=== PATIENT | female | born 1940 | race Caucasian/White ===

== ENCOUNTER 2023-09-14 22:46 | Inpatient (IN) | payer OTHER, MEDICARE ==
[~2023-09-14] VITALS: Ht 149.9 cm; Wt 71.7 kg
[~2023-09-14 22:46] MED LIST: BP MED; CEPH-569 PO; HORMONE; LOSA25TA27 PO; ZOLP12.52 PO
[2023-09-14] MEDS: IV NS 0.9% 1,000 ML BAG IV ONE (23:13)
[2023-09-14 23:22] LABS: BASOPHILS % (AUTO) 0.4 % (0.0-2.0); EOSINOPHILS % (AUTO) 0.4 % (0.0-6.0); HEMATOCRIT 42 % (33-45); HEMOGLOBIN 14.4 g/dL (11.5-14.8); LYMPHOCYTES # (AUTO) 1.3 K/uL (0.8-4.8); LYMPHOCYTES % (AUTO) 12.6 % (20.0-44.0); MEAN CORPUSCULAR HEMOGLOBIN 30 PG (26.0-33.0); MEAN CORPUSCULAR HGB CONC 34 g/dl (31.0-36.0); MEAN CORPUSCULAR VOLUME 88 fL (82-100); MONOCYTES # (AUTO) 0.6 K/uL (0.1-1.30); MONOCYTES % (AUTO) 5.7 % (2.0-12.0); NEUTROPHILS # (AUTO) 8.5 K/uL (1.8-8.9); NEUTROPHILS % (AUTO) 80.9 % (43.0-81.0); PLATELET COUNT (AUTO) 191 K/uL (150-450); RED BLOOD CELL COUNT(AUTO) 4.83 MIL/uL (4.0-5.2); RED CELL DISTRIBUTION WIDTH 15.7 % (11.5-15.0); WHITE BLOOD COUNT (AUTO) 10.5 K/uL (4.3-11.0)
[2023-09-15 00:26] LABS: APPEARANCE,URINE CLEAR (CLEAR); BILIRUBIN,URINE NEGATIVE (NEGATIVE); BLOOD, URINE 3+ Ery/uL (NEGATIVE); COLOR,URINE YELLOW (YELLOW); KETONES,URINE NEGATIVE (NEGATIVE); LEUKOCYTE ESTERASE ,URINE TRACE (NEGATIVE); NITRITE, URINE NEGATIVE (NEGATIVE); PROTEIN,URINE NEGATIVE (NEGATIVE); UGLUCOSE NEGATIVE (NEGATIVE); UROBILINOGEN,URINE 0.2 EU/dL (0.2)
[2023-09-15 00:35] LABS: ALANINE AMINOTRANSFERASE 34 U/L (12-78); ALBUMIN 3.6 g/dL (3.4-5.0); ALCOHOL, BLOOD < 3 mg/dL (0-10); ALKALINE PHOSPHATASE 71 U/L (46-116); ASPARTATE AMINOTRANSFERASE 47 U/L (15-37); BILIRUBIN,DIRECT 0.1 mg/dL (0.0-0.2); BILIRUBIN,TOTAL 0.6 mg/dL (0.2-1.0); CALCIUM, SERUM 9.5 mg/dL (8.5-10.1); CARBON DIOXIDE 25 mmol/L (21-32); CHLORIDE 101 mmol/L (98-107); GLUCOSE 120 mg/dL (74-106); POTASSIUM 3.5 mmol/L (3.5-5.1); SODIUM SERUM 138 mmol/L (136-145); TOTAL PROTEIN, SERUM 7.4 g/dL (6.4-8.2); UREA NITROGEN, BLOOD 21 mg/dL (7-18)
[2023-09-15 00:35] LABS: AMPHETAMINE, URINE NEGATIVE (NEGATIVE); BARBITURATE, URINE NEGATIVE (NEGATIVE); BENZODIAZEPINE, URINE NEGATIVE (NEGATIVE); CANNABINOID, URINE NEGATIVE (NEGATIVE); COCCAINE, URINE NEGATIVE (NEGATIVE); OPIATE, URINE NEGATIVE (NEGATIVE); PHENCYCLIDINE SCREEN,URINE NEGATIVE (NEGATIVE)
[2023-09-15 00:37] LABS: ADD URINE CULTURE NO; BACTERIA,URINE None seen /HPF (None Seen)
[2023-09-15 00:38] LABS: SQUAMOUS EPITHELIAL CELL,UR 0-2 /HPF (None Seen)
[2023-09-15 00:40] LABS: ACETAMINOPHEN 0 ug/ml (10-30); SALICYLATE 1.3 mg/dL (2.8-20.0)
[2023-09-15] MEDS ORDERED: IBUPROFEN 600 MG TABLET ONE (03:26)
[2023-09-15] MEDS: IBUPROFEN 600 MG TABLET PO ONE (03:35)
[2023-09-15] MEDS ORDERED: ZOLP10TA2 PO (10:16)
[2023-09-15] MEDS ORDERED: ROSU10TA29 PO (10:16)
[2023-09-15] MEDS ORDERED: GABA800T11 PO (10:16)
[2023-09-15 12:30] VITALS: BP 161/76; TEMP 97.7; O2SAT 98
[2023-09-15] MEDS ORDERED: MAG HYDROX/AL HYDROX/SIMETH 30 ML UDC PO PRN (12:30)
[2023-09-15] MEDS ORDERED: LORAZEPAM 0.5 MG TABLET PO PRN (12:30)
[2023-09-15] MEDS ORDERED: MAGNESIUM HYDROXIDE 30 ML UDC PO PRN (12:30)
[2023-09-15] MEDS: BLOOD SUGAR DIAGNOSTIC 1 EACH STRIP IN ONE (13:54)
[2023-09-15 16:00] VITALS: BP 163/71; TEMP 98; O2SAT 98
[2023-09-15] MEDS: ACETAMINOPHEN 325 MG TABLET PO PRN (16:31)
[2023-09-15] MEDS: ATORVASTATIN 40 MG TABLET PO SCH (18:10)
[2023-09-15 20:00] VITALS: BP 135/79; TEMP 97.8; O2SAT 95
[2023-09-15 21:02] VITALS: BP 178/94; TEMP 97.8; O2SAT 95
[2023-09-16 08:00] VITALS: BP 192/94; TEMP 98; O2SAT 96
[2023-09-16] MEDS: LOSARTAN POTASSIUM 25 MG TABLET PO SCH (08:40)
[2023-09-16 09:10] LABS: ALANINE AMINOTRANSFERASE 26 U/L (12-78); ALBUMIN 3.2 g/dL (3.4-5.0); ALKALINE PHOSPHATASE 66 U/L (46-116); ASPARTATE AMINOTRANSFERASE 30 U/L (15-37); BILIRUBIN,TOTAL 0.7 mg/dL (0.2-1.0); CALCIUM, SERUM 9.2 mg/dL (8.5-10.1); CARBON DIOXIDE 25 mmol/L (21-32); CHLORIDE 104 mmol/L (98-107); CREATININE 0.7 mg/dL (0.6-1.3); GLUCOSE 116 mg/dL (74-106); POTASSIUM 3.3 mmol/L (3.5-5.1); SODIUM SERUM 140 mmol/L (136-145); TOTAL PROTEIN, SERUM 6.9 g/dL (6.4-8.2); UREA NITROGEN, BLOOD 12 mg/dL (7-18)
[2023-09-16 09:17] LABS: CHOLESTEROL 200 mg/dL (<200); HDL CHOLESTEROL 88 mg/dL (40-60); LDL 86 mg/dL (0-99); TRIGLYCERIDES 87 mg/dL (30-150)
[2023-09-16 10:04] LABS: CREATININE 0.7 mg/dL (0.6-1.3)
[2023-09-16] MEDS: AMLODIPINE BESYLATE 10 MG TABLET PO SCH (10:52)
[2023-09-16] MEDS: ESCITALOPRAM OXALATE (10 MG) 10 MG TABLET PO SCH (10:52)
[2023-09-16] MEDS: POTASSIUM CHLORIDE 20 MEQ TAB.PRT.SR PO ONE (12:01)
[2023-09-16] MEDS: METHOCARBAMOL (750MG) 750 MG TABLET PO ONE (12:01)
[2023-09-16 16:00] VITALS: BP 158/80; TEMP 97.5; O2SAT 98
[2023-09-16] MEDS: ONDANSETRON 4 MG TAB.RAPDIS PO PRN (16:50)
[2023-09-16 20:20] VITALS: BP 146/85; TEMP 98.8; O2SAT 98
[2023-09-16] MEDS: GABAPENTIN 400 MG CAPSULE PO SCH (20:33)
[2023-09-16] MEDS: diphenhydrAMINE HCL 50 MG CAPSULE PO PRN (20:48)
[2023-09-17 08:00] VITALS: BP 156/85; TEMP 97.9; O2SAT 96
[2023-09-17] MEDS: IBUPROFEN 600 MG TABLET PO PRN (12:53)
[2023-09-17 16:00] VITALS: BP 130/75; TEMP 97.8; O2SAT 98
[2023-09-17] MEDS: LOSARTAN POTASSIUM 25 MG TABLET PO SCH (16:56)
[2023-09-17 20:22] VITALS: BP 98/70; TEMP 97.5; O2SAT 98
[2023-09-18 08:00] VITALS: BP 132/65; TEMP 97.9; O2SAT 96
[2023-09-18 16:00] VITALS: BP 120/67; TEMP 97.7; O2SAT 94
[2023-09-18 21:07] VITALS: BP 129/69; TEMP 98.4; O2SAT 96
[2023-09-19 08:00] VITALS: BP 133/77; TEMP 98.1; O2SAT 97
[2023-09-19 16:00] VITALS: BP 120/72; TEMP 97.9; O2SAT 96
[2023-09-19 20:00] VITALS: BP 164/84; TEMP 98.1; O2SAT 97
[2023-09-20 08:00] VITALS: BP 145/79; TEMP 97.6; O2SAT 100
[2023-09-20 16:00] VITALS: BP 139/73; TEMP 98.1; O2SAT 96
[2023-09-20] MEDS: METHOCARBAMOL (500MG) 500 MG TABLET PO PRN (17:18)
[2023-09-20 20:00] VITALS: BP 130/75; TEMP 98.4; O2SAT 95
[2023-09-21 08:00] VITALS: BP 151/75; TEMP 97.7; O2SAT 94
[2023-09-21 08:31] VITALS: BP 151/75
== END 2023-09-21 12:20 | disposition home or self-care (01) | DRG 885 ==
LOC: ER 23:02 → GPS 09-15 12:08
PROVIDERS: ADMIT Psychiatry & Neurology Psychiatry; ATTEND Student in an Organized Health Care Education/Training Program
DX: F33.2 Major depressive disorder, recurrent severe without psychotic features (principal); T42.6X2A Poisoning by other antiepileptic and sedative-hypnotic drugs, intentional self-harm, initial encounter; R45.851 Suicidal ideations; F43.21 Adjustment disorder with depressed mood; I10 Essential (primary) hypertension; Z88.8 Allergy status to other drugs, medicaments and biological substances; Z79.899 Other long term (current) drug therapy; Y92.009 Unspecified place in unspecified non-institutional (private) residence as the place of occurrence of the external cause; Z85.038 Personal history of other malignant neoplasm of large intestine; Z90.49 Acquired absence of other specified parts of digestive tract; G89.29 Other chronic pain; E78.00 Pure hypercholesterolemia, unspecified; R79.89 Other specified abnormal findings of blood chemistry; R74.01 Elevation of levels of liver transaminase levels
CPT/HCPCS: 36415; 80048-TC; 80053-TC; 80061-TC; 80076-TC; 81001; 82565-TC; 82962-TC; 85025-TC; 87081-TC; 97116-TC; 97530-TC; G0480; J7030; Q0162; Q0163